=== PATIENT | female | born 1985 | race Caucasian/White ===

== ENCOUNTER 2022-08-06 15:26 | Outpatient (CLI) | payer OTHER, SELFPAY ==
--- NOTE | ~2022-08-06 | US_ITS ---
EXAMINATION: US OB <=14 wk fetus w TV DATE: 08/06/2022 16:24 INDICATION: Missed . TECHNIQUE: Real-time transabdominal and transvaginal obstetric ultrasound. FINDINGS: Ultrasound dated 07/06/2022 The uterus measures 13.6 x 8.4 x 6.4 cm. There is an intrauterine gestational sac containing a pole measuring 2.17 cm corresponding to 8 week 6 day gestation. No heart motions detected, cons istent with demise. The ovaries are nonvisualized. Yolk sac not identified. No free fluid in th e pelvis. IMPRESSION: 1. Intrauterine gestational sac containing a pole without heart motions detected, consist ent with demise. Reviewed, dictated and finalized at location A. IMPRESSION: 1. Intrauterine gestational sac containing a pole without heart mot ions detected, consistent with demise.
== END 2022-08-06 15:27 | disposition home or self-care (01) ==
LOC: ANHIMG 15:29
PROVIDERS: Visit Provider Student in an Organized Health Care Education/Training Program
DX: O02.1 Missed abortion (principal)
CPT/HCPCS: 76801; 76817

== ENCOUNTER 2022-08-11 00:29 | Day surgery (SDC) | payer OTHER, SELFPAY ==
[2022-08-10 14:31] VITALS: BMI 18.7
--- NOTE | 2022-08-10 14:37 | PC.NURSE ---
Report to the Outpatient Waiting Room, entrance under the green pavilion located off [facility], at time 1000 on date 08/11/22. Planned Procedure Time: 1200. Time changes happen often and if your time is changed the preop area will call you the afternoon before. - You and your visitor will be asked to self-screen and do not enter if you have any COVID symptoms. - Only one visitor is requested with a max of two and NO children visitors are allowed at this time. - The patient visitor may be requested to leave or wait in car when not with patient due to distancing restrictions. - A mask is optional within the hospital at this time. Patients may have clear liquids (water, carbonated beverages, clear teas, apple juice) until 3 hours prior to surgery with a maximum of 20 ounces. - No food from midnight until time of surgery Take the following medications with a SIP of water the morning of surgery: N/A DO NOT STOP ANY OF YOUR OTHER PRESCRIPTION MEDICATIONS PRIOR TO SURGERY?EXCEPT THE FOLLOWING Medications to discontinue per physician: N/A Date to take last dose: N/A Please no make-up, nail croatian, hairspray, perfume, deodorant, or body powder the day of surgery. No jewelry (including any body piercings) or valuables the day of surgery, leave them at home. Please take a shower or bath the night before, or the morning of, surgery with an antibacterial soap. Wear comfortable, loose fitting clothing. - Jewelry must be removed prior to entering the operating room. Rings and piercings that are not removed may be cut off. - The hospital will not accept responsibility for valuables. - Please leave all valuables, including medications, at home the day of surgery. If you are going home after surgery, a licensed bulk truck driver must drive you home. - NO public transportation without another adult if you receive anesthesia. - We recommend that an adult stay with you for 24 hours following discharge. - We also recommend that you do not drive, make important decision, drink alcoholic beverages, or take any drugs that were not prescribed by your health care provider for at least 24 hours after your discharge time. Follow any additional instructions given to you from your surgeon. If you or anyone in your household have experienced Covid symptoms in the past week, please notify your surgeon or the nurse liaison at the phone number below for possible testing. Telephone instructions given to PT - NOHEMI SALDIVAR and asked if any additional questions and then verbalized understanding. Patient advised to call surgeon office or pre surgery nurse liaison [phone] if any additional questions.
[2022-08-11] VITALS (7 sets, daily range): BP systolic 88–100; BP diastolic 46–60; PULSE 53–76; RESP 12–16; TEMP 36.8–37; O2SAT 99–100
--- NOTE | 2022-08-11 07:42 | PM.IMHP ---
H&P: HPI History of Present Illness Date/Time: 08/11/22 07:42 Chief Complaint: missed Narrative: 37-year-old 024 who presents for suction D&C for management for early loss. Patient presented to the office for her new OB visit. heart tones were unable to be obtained by Doppler or bedside ultrasound. Patient had formal ultrasound to confirm missed . Formal ultrasound showed intrauterine with no interval growth and no heart tones. Patient denies any bleeding, cramping, fevers, chills, nausea, vomiting. Patient elected for surgical management. Review of Systems Cardiovascular: Cardiovascular: Denies chest pain, Denies leg edema, Denies palpitations, Denies dyspnea and Denies dyspnea on exertion Respiratory: Respiratory: Denies cough, Denies dyspnea and Denies dyspnea on exertion Gastrointestinal: Gastrointestinal: Denies abdominal pain, Denies constipation, Denies diarrhea, Denies nausea and Denies vomiting Genitourinary: Genitourinary: Denies hematuria, Denies urinary frequency, Denies dysuria, Denies pelvic pain, Denies urinary incontinence and Denies vaginal discharge Neurologic: Reports system reviewed and no additional complaints, except as documented Psychiatric: Psychiatric: Reports no additional psychiatric complaints Endocrine: Endocrine: Denies palpitations PMFSH Past Medical History Medical History Vaginal discharge Surgical History Surgical History H/O mastoidectomy History of delivery affecting x 2 Status post device closure of ASD Family History Family History Grandparent Breast cancer Social History Social History Years smoked: 20 Smoking status: Current every day smoker Tobacco type: cigarettes Alcohol intake: never Substance use: current Substance use type: marijuana Last use: social Living arrangements: with family Additional living arrangements comments: spouse and children Occupation/Education: occupation 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 Gender identity (if verbalized by the patient): Female Sexual Orientation (if Verbalized by the Patient): Straight or Heterosexual Spiritual care concerns: No Meds Home Medications and Allergies Home Medications Medication Instructions Recorded Confirmed Type No Home Medications 08/10/22 08/10/22 History Allergies Allergy/AdvReac Type Severity Reaction Status Date / Time No Known Allergies Allergy Verified 08/10/22 14:30 Exam Const: General: no acute distress Eyes: EOM: EOMs intact bilaterally Neck: Neck: supple Thyroid: thyroid normal Chest: Breast/axilla inspection: normal inspection of the breasts Breast/axilla palpation: normal palpation of the breasts, normal palpation of the axillae and no axillary lymphadenopathy Resp: Effort & Inspection: normal respiratory effort Auscultation: clear to auscultation bilaterally Cardio: Rate: regular rate Rhythm: regular rhythm GI: Inspection: non-distended GI Palp: Yes Soft to palpation, No Tenderness to palpation present (GI) and No Guarding due to palpation present (GI) Auscultation: normal bowel sounds : General: No bladder normal to palpation External Female Exam: normal external appearance Speculum Exam - Vagina: normal vaginal discharge and No vaginal bleeding Speculum Exam - Cervix: nontender Bimanual exam- vagina & uterus: No bladder normal to palpation and No Cervical tenderness present OB/external & speculum: No vaginal bleeding Skin: General skin exam: normal color and no rashes or lesions noted Neuro: Cognition (Neuro): normal cognition Speech: normal speech Extrem: General: normal to inspection and no edema Psyc
--- NOTE | 2022-08-11 07:46 | WPDHPUPDATE1 ---
History and Physical Update Update Date/Time: 08/11/22 07:46 History and Physical has been reviewed, including an updated exam of the patient. There are NO changes in the patient's condition. Risks, benefits, and alternatives have been discussed and questions answered. Patient agrees to proceed with procedure.
[2022-08-11] MEDS: ACETAMINOPHEN 500 MG TABLET 1000 MG PO (10:31)
[2022-08-11] MEDS: DOXYCYCLINE 100 MG/NS 100 ML 100 MG/100 ML BAG IVPB (10:58)
--- NOTE | 2022-08-11 11:43 | P.PNAN_ITS ---
Anes - Initial Pre Proc Eval Procedure: Operation Date: 08/11/22 12:00 Proposed Procedures p Suction Dilation and Curettage - Masood Malcolm MD Date/Time: 08/11/22 11:43 Surgeon: Masood Malcolm MD Pre Op Diagnosis: missed ab Patient Data Age: 37 Gender: F Height: 1.59 m Weight: 46.9 kg Last Vital Signs Temp 37.0 C 08/11/22 10:39 Pulse 76 08/11/22 10:39 Resp 16 08/11/22 10:39 BP 96/60 L 08/11/22 10:39 Pulse Ox 99 08/11/22 10:39 O2 Del Method Room Air 08/11/22 10:39 Allergies Allergy/AdvReac Type Severity Reaction Status Date / Time No Known Allergies Allergy Verified 08/11/22 10:26 Home Medications Medication Instructions Recorded Confirmed Type No Home Medications 08/10/22 08/10/22 History Patient hx anesthesia problems: none Family hx anesthesia problems: none Results Review: All pre-operative results and documents have been reviewed as part of the pre- operative evaluation. [facility] Past Medical History Medical History Vaginal discharge Surgical History Surgical History H/O mastoidectomy History of delivery affecting x 2 Status post device closure of ASD Family History Family History Grandparent Breast cancer Social History Social History Years smoked: 20 Smoking status: Current every day smoker Tobacco type: cigarettes Alcohol intake: never Substance use: current Substance use type: marijuana Last use: social Living arrangements: with family Additional living arrangements comments: spouse and children Occupation/Education: occupation 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 Gender identity (if verbalized by the patient): Female Sexual Orientation (if Verbalized by the Patient): Straight or Heterosexual Spiritual care concerns: No Anes - Eval Final PreProcedure Day of Procedure 08/11/22 11:43 Patient weight: thin Heart: regular rate and rhythm Lungs: clear to auscultation Airway: Mallampati scale class II Neurological: alert and oriented Last oral intake: >/= 8 hours ASA classification: II Emergent: no Anesthetic plan: proceed Anesthesia type and monitoring: general GIVS and standard monitoring Results Review: All pre-operative results and documents have been reviewed as part of the pre- operative evaluation. Informed Consent: The patient's anesthetic plan and its attendant risks and benefits were discussed with the patient/family/POA. Questions were solicited and answers provided to the satisfaction of the patient/family/POA.
[2022-08-11] MEDS: KETOROLAC 30 MG/ML VIAL (*BKC) IV PUSH (12:12)
[2022-08-11] MEDS: LACTATED RINGERS 1,000 ML 30 ML IV CONT ×2 (12:32→12:50)
--- NOTE | 2022-08-11 12:57 | P.OP_ITS ---
Procedure Note - Detailed Date of Procedure 08/11/22 Pre-op Diagnosis missed Post-op Diagnosis Same Procedure Performed Suction Dilation & curettage Surgeon Masood Malcolm MD Anesthesia General Indications spontaneous missed on pelvic US Findings intrauterine products of conception Description of Procedure The patient was taken to the operating room after a missed had been noted on on transvaginal ultrasound. The risks, benefits and alternatives of the procedure were reviewed with the patient and informed consent was obtained. The patient was taken to the OR and anesthesia was noted to be adequate. The patient was placed in the dorsolithotomy position. Pelvic exam was performed with findings noted above. The patient was prepped and draped in the usual sterile fashion. Sterile speculum was placed in the vagina and the cervix was grasped with a tenaculum. The cervix was dilated further to allow for passage of a 8 mm suction curette. The 8 mm suction curette was gently a dvanced to the fundus, suction was activated, and the tip was rotated while being withdrawn to clear the uterus of products. This suction process was repeated 3 additional times due to the quantity of material in the uterus. The sharp curette was introduced and advanced to the fundus to remove any remaining products. The suction curette was reintroduced one final time to ensure all products had been removed. the above procedure was performed under bedside ultrasound guidance. The tenaculum was removed. Good hemostasis was noted. Instrument, sponge, and sharp counts were correct. Patient tolerated the procedure well and was taken to the recovery room in stable condition. Estimated Blood Loss 5 Drains No Packing No Pathology Yes ( Products of conception) Complications No immediate complications Condition Stable Disposition PACU [facility] Billing Surgery - Charge Forward: Surgery Billing
[2022-08-11] MEDS: DOXYCYCLINE HYCLATE 100 MG TABLET 200 MG PO (13:42)
== END 2022-08-11 14:10 | disposition home or self-care (01) ==
PROVIDERS: Visit Provider Student in an Organized Health Care Education/Training Program
PROC: (CPT 59820; principal; 2022-08-11 12:00)
DX: O02.1 Missed abortion (principal); O99.330 Smoking (tobacco) complicating pregnancy, unspecified trimester; F17.210 Nicotine dependence, cigarettes, uncomplicated; Z3A.00 Weeks of gestation of pregnancy not specified; F12.90 Cannabis use, unspecified, uncomplicated
CPT/HCPCS: 59820; 36415; 85461; 86850; 86900; 86901; 88305; A9270; J1100; J1885; J2250; J2405; J2704; J3010; J7120

== ENCOUNTER 2023-10-07 13:13 | Emergency (ER) | payer OTHER, SELFPAY ==
--- NOTE | ~2023-10-07 | XR_ITS ---
EXAMINATION: XR toe 4th LT min 2V DATE: 10/07/2023 13:36 INDICATION: Trauma to the left fourth toe. TECHNIQUE: Dorsal plantar, lateral and 2 oblique views of the left fourth toe were obtained. COMPARISON: None FINDINGS: Laterally impacted transverse fracture of the distal metadiaphysis of the left fourth proximal phalan x with 45 degree lateral angulation. Bone alignment is otherwise normal. No other fractures identifie d. 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 Mild soft tissue swelling about the fourth toe. IMPRESSION: 45 degrees lateral angulation of a distal metadiaphyseal fracture of the left fourth proximal phalanx . Reviewed, dictated and finalized at location A. IMPRESSION: 45 degrees lateral angulation of a distal metadiaphyseal fracture of the left f ourth proximal phalanx.
[2023-10-07 13:25] VITALS: BP 107/72; PULSE 78; RESP 18; TEMP 37; O2SAT 100
--- NOTE | 2023-10-07 13:39 | ED.LOWEXIN ---
HPI - Extremity Injury (Lower) General Chief Complaint: Extremity Injury, Lower Stated Complaint: Toe Injury Source: patient Mode of arrival: ambulatory Limitations: no limitations History of Present Illness HPI Narrative: 38-year-old female presented for complaint left 4th toe pain after injury 2 hours prior to arrival. She states she tripped on her pants and stubbed the toe on a weight. States the toe is not straight and is now overlapping the little toe, she initially tried to move the toe back into alignment but it caused pain. Denies numbness, tingling, weakness, swelling or bruising. No treatment for pain. Related Data Allergies Allergy/AdvReac Type Severity Reaction Status Date / Time No Known Allergies Allergy Verified 08/11/22 10:26 Review of Systems Review of Systems: CONSTITUTIONAL: Denies body aches, fever, chills CARDIOVASCULAR: Denies chest pain, palpitations, or edema. RESPIRATORY: Denies cough or dyspnea. GASTROINTESTINAL: Denies abdominal pain, nausea, vomiting, or diarrhea. SKIN: Denies rash, itching, or wounds. MUSCULOSKELETAL: reports left toe pain NEUROLOGIC: Denies headache, numbness, tingling, or weakness. All systems reviewed & are unremarkable except as noted in HPI and below PMFSH Past Medical History Medical History Vaginal discharge Surgical History Surgical History H/O mastoidectomy History of delivery affecting x 2 Status post device closure of ASD Family History Family History Grandparent Breast cancer Social History Social History Years smoked: 20 Smoking status: Current every day smoker Tobacco type: cigarettes Alcohol intake: never Substance use: current Substance use type: marijuana Last use: social Living arrangements: with family Additional living arrangements comments: spouse and children Occupation/Education: occupation 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 Please see nursing chart for further information. There is no relevant family history pertinent to the presenting complaint Exam Narrative: GENERAL: Well-appearing CHEST: Speaks in full sentences. No respiratory distress. HEART: Regular rate and rhythm. Normal and equal peripheral pulses. EXTREMITIES: Left 4th toe laterally displaced, no swelling or bruising. Foot has normal strength and sensation, limited range of motion at the toe due to pain with movement. No open wounds; pulse palpable and equal bilaterally, skin warm, dry, pink. Capillary refill less than 3 seconds. SKIN: Warm, dry, no rash. NEURO: Alert and oriented x3. PSYCH: Normal mood and affect Course Course Emergency Course: Patient is aware of diagnosis, understands and agrees to treatment plan. Anticipatory guidance given. Patient agrees to follow-up as directed and is aware of reasons to seek care at the emergency department. Portions of this record may have been created with voice recognition software Level of Care: Express Care Visit Vital Signs Vital signs: Vital Signs Temperature 98.6 F 10/07/23 13:25 Pulse Rate 78 10/07/23 13:25 Respiratory Rate 18 10/07/23 13:25 Blood Pressure 107/72 10/07/23 13:25 Pulse Oximetry 100 10/07/23 13:25 Oxygen Delivery Room Air 10/07/23 13:25 Temperature 98.6 F 10/07/23 13:25 Pulse Rate 78 10/07/23 13:25 Respiratory Rate 18 10/07/23 13:25 Blood Pressure 107/72
== END 2023-10-07 15:15 | disposition home or self-care (01) ==
PROVIDERS: Emergency Provider Nurse Practitioner Family
DX: S92.532A Displaced fracture of distal phalanx of left lesser toe(s), initial encounter for closed fracture (principal); W22.8XXA Striking against or struck by other objects, initial encounter; F17.210 Nicotine dependence, cigarettes, uncomplicated; F12.90 Cannabis use, unspecified, uncomplicated
CPT/HCPCS: 28515; 73660; 99214; G0463